=== PATIENT | female | born 1965 | race Caucasian/White ===

== ENCOUNTER 2017-04-01 20:00 | Emergency (ER) | payer BC ==
[2017-04-01 21:15] VITALS: BP 133/74
[2017-04-01] MEDS ORDERED: Tetracaine 0.5% OPTH.SOL 4 ML* 1 DROP BTL RIGHT EYE ONE (22:06)
[2017-04-01] MEDS ORDERED: Fluorescein Sodium TOPICAL* 1 MG TEST OPHTHALMIC ONE (22:06)
[2017-04-01] MEDS ORDERED: Artificial Tears* 15 ML BTL RIGHT EYE ONE (22:07)
[2017-04-01] MEDS ORDERED: Ondansetron ODT TAB* 4 MG PO ONE (22:32)
[2017-04-01] MEDS ORDERED: Tobramycin 0.3% OPHTH.SOL* 5 ML BOT (regular eye drops) RIGHT EYE ONE (22:51)
--- NOTE | 2017-04-01 22:58 | UC ---
Eye Complaint HPI - HPI Summary HPI Summary: AT 1900 WHILE BIKING HAD BUG IN RIGHT EYE. FEELS LIKE BUG IS STILL IN THERE. HAS VASOVAGAL PANIC-TYPE REACTIONS TO PAIN, PHOTOSENSITIVITY AND EYE CONCERNS. - History of Current Complaint Chief Complaint: UCEye Stated Complaint: BUG IN EYE Time Seen by Provider: 04/01/17 22:18 Hx Obtained From: Patient Hx Last Menstrual Period: 3 wks ago Onset/Duration: Sudden Onset, Lasting Hours, Still Present Timing: Hours Severity Initially: Moderate Severity Currently: Moderate Location of Injury: Eye Lid (upper) Character: Foreign Body Sensation Aggravating Factor(s): Nothing Alleviating Factor(s): Nothing Associated Signs And Symptoms: Positive: Drainage (Clear) - Risk Factors Penetrating Injury Risk Factor: Negative Acute Glaucoma Risk Factors: Negative Optic Artery Occlusion Risk Factors: Negative - Allergies/Home Medications Allergies/Adverse Reactions: Allergies Allergy/AdvReac Type Severity Reaction Status Date / Time No Known Allergies Allergy Verified 04/01/17 21:15 Home Medications: Home Medications Thyroid [Nature-Throid] 04/01/17 [History Confirmed 04/01/17] PMH/Surg Hx/FS Hx/Imm Hx Previously Healthy: Yes - Surgical History Surgical History: None - Family History Known Family History: Negative: Blood Disorder - Social History Occupation: Employed Full-time Lives: With Family Alcohol Use: None Substance Use Type: None Smoking Status (MU): Never Smoked Tobacco - Immunization History Most Recent Tetanus Shot: 2014 Review of Systems Constitutional: Negative Skin: Negative Eyes: Drainage, Eye Redness, Photophobia, Other - FB SENSATION RIGHT EYE ENT: Negative Respiratory: Negative Cardiovascular: Negative Gastrointestinal: Negative Genitourinary: Negative Motor: Negative Neurovascular: Negative Musculoskeletal: Negative Neurological: Negative Psychological: Negative All Other Systems Reviewed And Are Negative: Yes Physical Exam Triage Information Reviewed: Yes Appearance: Well-Appearing, No Pain Distress, Well-Nourished Vital Signs: Initial Vital Signs Temp 97.9 F 04/01/17 21:10 Pulse 80 04/01/17 21:10 Resp 18 04/01/17 21:10 BP 133/74 04/01/17 21:10 Pulse Ox 99 04/01/17 21:10 Eyes: Positive: Conjunctiva Inflamed, Other: - FB (SMALL INSECT) REMOVED FROM RIGHT UPPER LID. FLORESCEIN UPTAKE AT 9OCLOCK SUGGESTIVE OF CORNEAL ABRASION Eye Complaint Course/Dx - Differential Dx/Diagnosis Differential Diagnosis/HQI/PQRI: Conjunctivitis, Corneal Abrasion, Foreign Body Provider Diagnoses: RIGHT EYE CORNEAL ABRASION; FOREIGN BODY (INSECT) REMOVED FROM RIGHT EYE Discharge - Discharge Plan Condition: Stable Disposition: HOME Patient Education Materials: Corneal Abrasion (ED), Eye Foreign Body (ED) Referrals: Maria De Jesus Huntley NP [Primary Care Provider] - Omer Lamb MD [Medical Doctor] -
== END 2017-04-01 23:12 | disposition home or self-care (01) ==
LOC: UCEAST 20:00
DX: T15.01XA Foreign body in cornea, right eye, initial encounter (principal); H02.811 Retained foreign body in right upper eyelid; W45.8XXA Other foreign body or object entering through skin, initial encounter
CPT/HCPCS: 99212; A9270-GY; G0463